=== PATIENT | male | born 1945 | race Caucasian/White ===

== ENCOUNTER 2016-12-10 22:08 | Inpatient (IN) | payer MEDICARE, OTHER ==
--- NOTE | ~2016-12-10 | DS ---
Discharge Summary [facility] [address] [facility] [place]. [address] NAME: RIMMA FLORIAN : 45 STATUS : DIS IN PAT#: [id number] AGE: 71 ADM/REG DATE : 12/10/16 MR#: [id number] REPORT SERV DATE: 01/09/17 DICTATED BY: JAKE HOLMAN DATE: 01/09/17 REPORT STATUS : Draft TRANSCRIBED BY: MODL DATE: 01/09/17 ADMISSION DATE: 12/10/2016 DISCHARGE DATE: 12/13/2016 CONDITION AT DISCHARGE: Alive and improved. The patient was transferred to [facility] for assessment by the Nephrology Group Therapy. The patient had to be transferred since he had previously dismissed the Nephrology Group that consulted in our hospital and did not want Nephrology's care here and was interested in going there for consideration of renal replacement therapy. Since that would be serviced and that could not be offered here, the transfer was just viable. He was accepted by the service at [facility] and transferred on 01/12/2017. There is a progress note on the chart from 12/13/2016 that outlines the subjective and objective findings on the day of transfer, including the physical exam on the day of transfer, and that outlines his diagnoses. SUMMARY OF CLINICAL COURSE: The patient is an unfortunate 71-year-old man with a multitude of medical problems to include, most significant for this, coronary artery disease, coronary artery bypass graft surgery in the past, COPD, diabetes which is poorly controlled, chronic kidney disease which is poorly controlled, hypercholesterolemia, hypertension, and questionable medical compliance. The patient had been considered for hemodialysis before and had not been sure he wanted to proceed with that. He is also a heavy smoker, greater than 50 pack year history up until recently and on the lead after this admission. He was admitted with acute respiratory failure, was intubated, and did reasonably well. It was felt that the worst of his respiratory failure was driven by pulmonary edema, though certainly had significant COPD as well. He was successfully stabilized, weaned and extubated. After extubation, the patient wanted to revisit some of the decisions that were made while he is incapacitated including his DNR status. He agreed to a no CPR status given the advanced stage of his cardiac pulmonary and kidney diseases, but wanted to be considered for hemodialysis. At his request, transfer was requested to the facility where he receives most of his care and where he has had a contact with a different Nephrology Group, and he was transferred to [facility] on 12/13/2016. DICTATED BY: Jake Holman M.D. CB/MORA Jake Holman M.D. / [id number] Discharge Summary [address] [address] NAME: RIMMA FLORIAN : 45 STATUS : DIS IN PAT#: [id number] AGE: 71 ADM/REG DATE : 12/10/16 MR#: [id number] REPORT SERV DATE: 01/09/17 DICTATED BY: JAKE HOLMAN DATE: 01/09/17 REPORT STATUS : Draft TRANSCRIBED BY: MORA DATE: 01/09/17 CC: Maryann Vargas MD
--- NOTE | ~2016-12-10 | CN ---
Consultation Report [address] [place]. [address] NAME: RIMMA FLORIAN : 45 STATUS : ADM IN PAT#: [id number] AGE: 71 ADM/REG DATE : 12/10/16 MR#: [id number] REPORT SERV DATE: 12/11/16 DICTATED BY: ROSANNE MCNAIR DATE: 12/11/16 REPORT STATUS : Draft TRANSCRIBED BY: MODL DATE: 12/11/16 CARDIOLOGY CONSULTATION DATE OF CONSULTATION: PRIMARY MILLING PLANER OPERATOR: Dr. Sargent. CHIEF COMPLAINT: Unknown. REASON FOR CONSULTATION: Abnormal troponin. SOURCE: The patient and his chart. HISTORY OF PRESENT ILLNESS: Mr. Florian is a 71-year-old white man who was admitted last night with respiratory failure because of abnormal troponin. We were asked to see him in consultation. The pulmonary critical care team has apparently talked to the family today, and the patient is now on DNR status. The patient reportedly did not want dialysis. He had been followed by Dr. Aba Sargent for history of coronary artery disease and coronary artery bypass grafting. He has known chronic kidney disease, and his nephrology notes reveal that he did not want to pursue hemodialysis. REVIEW OF SYSTEMS: Unobtainable. ALLERGIES: PER HIS HOME LIST INCLUDED SULFA AND CODEINE. MEDICATIONS: At home included, amlodipine, Lipitor, carvedilol, vitamin D3, glipizide, and nitroglycerin p.r.n. PAST MEDICAL HISTORY: Significant for coronary artery disease, status post coronary bypass grafting; chronic kidney disease, followed by Nephrology reportedly did not want hemodialysis; diabetes mellitus; hypertension; hyperlipidemia; tobacco use; mild carotid disease; left upper nodule. SOCIAL HISTORY: Unobtainable. Apparently, he is a heavy smoker. Denies alcohol intake. Occasional caffeine. FAMILY HISTORY: Unobtainable. PHYSICAL EXAMINATION: GENERAL: He is a well-developed, well-nourished, elderly white man, lying in bed, intubated and comatose. VITAL SIGNS: Blood pressure 154/90, pulse 78, temperature 98.5. HEENT: Sclerae anicteric. Lips without cyanosis. Consultation Report [address] [place]. [address] NAME: RIMMA FLORIAN : 45 STATUS : ADM IN PAT#: [id number] AGE: 71 ADM/REG DATE : 12/10/16 MR#: [id number] REPORT SERV DATE: 12/11/16 DICTATED BY: ROSANNE MCNAIR DATE: 12/11/16 REPORT STATUS : Draft TRANSCRIBED BY: MORA DATE: 12/11/16 NECK: Carotids 2+ and symmetrical. No bruits. No JVD. No thyromegaly. LUNGS: Clear anteriorly. No use of accessory muscles. HEART: Regular rate and rhythm without murmur, gallop, or rub. CHEST: Healed sternotomy. ABDOMEN: Positive bowel sounds. Soft, nontender. EXTREMITIES: Pulses 2+ and symmetrical. No cyanosis, clubbing, or edema. BACK: No CVA tenderness. MUSCULOSKELETAL: Diminished tone. NEURO: Comatose. LABORATORY EXAMINATION: Sodium 144, potassium 4.6, chloride 111, CO2 21.5, BUN 45, creatinine 4.2, GFR 15, glucose 312. White count 8.5, hemoglobin 9.0, hematocrit 26.4, platelets 143,000. INR 1.2. CPK 305 MB 33, troponin of 7 up from 0.05. BNP level of 1331. TSH of 1.51. The EKG reveals sinus rhythm, left atrial enlargement, left bundle-branch block. The echocardiogram is a technically difficult study. LVEF of 16%. Diastolic dysfunction, elevated filling pressures. Dilated left atrium. Normal RV chamber size and systolic function. Mild MR, large left-sided pleural effusion. IMPRESSION: 1. Acute respiratory failure, now intubated and ventilated. 2. Abnormal CPK-MB and troponin consistent with small fjj-NA-mjovtmj elevation myocardial infarction. 3. Acute on chronic systolic congestive heart failure. 4. Last LVEF of 16% by echo. 5. Coronary artery disease, status post coronary bypass grafting. 6. History of hypertension. 7. Acute renal failure on chronic kidney disease. The patient reportedly declined dialysis. RECOMMENDATIONS: 1. Note DNR status, therefore will not escalate care. 2. Diuresis with IV loop diuretics. 3. Consider dobutamine. 4. Poor prognosis. MENDOZA/MORA Rosanne Mcnair M.D. / [id number] CC: Consultation Report [place] [address] [address] NAME: RIMMA FLORIAN : 45 STATUS : ADM IN [facility]#: [id number] AGE: 71 ADM/REG DATE : 12/10/16 MR#: [id number] REPORT SERV DATE: 12/11/16 DICTATED BY: ROSANNE MCNAIR DATE: 12/11/16 REPORT STATUS : Draft TRANSCRIBED BY: MORA DATE: 12/11/16 Maryann Vargas MD
--- NOTE | ~2016-12-10 | HP ---
History And Physical [place] [id number] [place]. [address] NAME: RIMMA FLORIAN : 45 STATUS : ADM IN [facility]#: [id number] AGE: 71 ADM/REG DATE : 12/10/16 MR#: [id number] REPORT SERV DATE: 12/11/16 DICTATED BY: BALDO RAPHAEL DATE: 12/11/16 REPORT STATUS : Draft TRANSCRIBED BY: MODL DATE: 12/11/16 DATE OF ADMISSION: 12/10/2016 PULMONARY CRITICAL CARE ADMISSION NOTE REASON FOR ADMISSION: Acute hypoxemic respiratory failure. HISTORY OF PRESENT ILLNESS: Mr. Florian is a 71-year-old gentleman, who presented to our emergency department tonight via EMS complaining of shortness of breath. He was seen by Dr. Castillo in the emergency department for shortness of breath and he actually abruptly became unresponsive and was moved to the trauma room, where he was endotracheally intubated by Dr. Castillo and placed on mechanical ventilation. He was started on broad-spectrum antibiotics. Cultures were sent and he was actually found to be in acute renal failure. Of note, he does have a history of chronic kidney disease. There was a question of lateral ischemia on his EKG and he did have profound metabolic acidosis, which was treated with bicarb. Chest x-ray showed bilateral infiltrates and he is now being admitted to the Critical Care Service for further management. PAST MEDICAL HISTORY: Is all taken from his son from whom he is not close, but who makes his medical decisions, as he is his only living relative. He has a history of coronary artery disease, status post previous coronary artery bypass grafting by Dr. Martin. He had a five-vessel CAB in 2010 (BERNAL to LAD, saphenous vein graft to the diagonal, saphenous vein graft sequential side by side to the intermediate ramus and end side to side to the obtuse marginal vessel, saphenous vein graft to the posterior descending coronary artery). This was done on 09/17/2010. Other medical history includes hypertension, dyslipidemia, diabetes mellitus which is poorly controlled, COPD, and chronic kidney disease. He has been previously considered for dialysis according to his son, but has never actually undergone dialysis. SURGICAL HISTORY: In addition to the coronary bypass grafting described above includes tonsillectomy, appendectomy, hemorrhoidectomy, and left heart cath done 01/12/[address] Barboza. SOCIAL HISTORY: The patient lives independently. He is a heavy smoker with greater than 50- pack-year history. He previously drank, but is not drinking recently. No illicit drug use according to his son. He is retired. FAMILY HISTORY: Noncontributory. ALLERGIES: SULFA AND CODEINE. HOME MEDICATIONS: Include Norvasc 5 daily, atorvastatin 40 at bedtime, Coreg 25 b.i.d., vitamin D daily 5000 units, Glucotrol 5 twice a day, nitroglycerin 0.4 sublingual up to three times as needed for chest pain. History And Physical [address] [address] NAME: RIMMA FLORIAN : 45 STATUS : ADM IN [facility]#: [id number] AGE: 71 ADM/REG DATE : 12/10/16 MR#: [id number] REPORT SERV DATE: 12/11/16 DICTATED BY: BALDO RAPHAEL DATE: 12/11/16 REPORT STATUS : Draft TRANSCRIBED BY: MORA DATE: 12/11/16 ADVANCED DIRECTIVE/LIVING WILL: None. His son is his medical decision maker while he is incapacitated. REVIEW OF SYSTEMS: A comprehensive 13-point review of systems was completed and was negative except for those points described above in the history of present illness section of the dictation. PHYSICAL EXAMINATION: VITAL SIGNS: Stable. He is afebrile with a blood pressure of 140 and a heart rate of 84, oxygen saturation is 100%, respiratory rate is 18 on mechanical ventilation. Pain scale is unassessed due to his sedation. GENERAL: The patient is a male, who is intubated and sedated, in no acute distress. HEENT: Head is atraumatic and normocephalic. Pupils are sluggishly reactive to light. Unable to assess extraocular movements. He has no scleral icterus or conjunctival pallor. Ears, nose, and mouth are unremarkable. He has poor oral dentition and an endotracheal tube (7.5) projecting from the mouth. He has an OG tube as well. NECK: Supple with no evidence of JVD. On point of care ultrasound, his carotid is patent and pulsatile. His jugular vein is also patent and is easily compressible. HEART: S1, S2. Brisk cap refill in distal extremities. On no vasopressors. LUNGS: With coarse breath sounds with bibasilar crackles. No audible wheeze. ABDOMEN: He does have some wincing to palpation of his abdomen with positive bowel sounds in all four quadrants. No appreciable peritoneal signs. : A Jara catheter is indwelling and draining a very small amount of urine. EXTREMITIES: With 1+ pitting edema bilateral pretibially. NEUROLOGIC: He moves all four extremities as a response to pain. He does not follow commands due to propofol sedation. Further neurologic exam is limited by propofol. PSYCHIATRIC: Unable to assess. DIAGNOSTIC STUDIES: Personal review of diagnostic workup completed in the emergency department. His initial blood gas showed pH 7.06, PaCO2 of 58, PO2 of 259, base excess -14, bicarb of 16.3, and a sat of 100%. A followup blood gas this evening shows pH of 7.26, CO2 of 43, O2 of 78, bicarb of 19, O2 saturation is 93.4 on 45% FiO2. Metabolic profile, white blood count 13.5 with a hemoglobin 11.7, hematocrit of 35.3, platelet count is 279. INR is 1.1. D-dimer is 2.76. Lactate is 2.8. Procalcitonin is less than 0.05. Troponin is 0.05. Magnesium is 2.1. His metabolic profile is significant for acute renal failure with a BUN of 42 and a creatinine of 4.26. His last documented BUN and creatinine in our facility is 16 and 0.93 on 01/13/2013, is hyperglycemic at 285. A BNP level is 1550. EKG FINDINGS: Question of lateral lead ST elevation, sinus tach at a rate of 138, some of the ST changes are chronic in comparison with many previous EKGs available on [employer]. A followup EKG has been ordered for the morning. A chest x-ray shows bilateral (right greater than left pulmonary infiltrates with no significant pleural fluid collections). His endotracheal tube is high and the OG tube is in place (endotracheal tube was adjusted). IMPRESSION: 1. Acute hypoxemic respiratory failure. Differential includes pulmonary edema secondary History And Physical [address] [address] NAME: RIMMA FLORIAN : 45 STATUS : ADM IN [facility]#: [id number] AGE: 71 ADM/REG DATE : 12/10/16 MR#: [id number] REPORT SERV DATE: 12/11/16 DICTATED BY: BALDO RAPHAEL DATE: 12/11/16 REPORT STATUS : Draft TRANSCRIBED BY: MORA DATE: 12/11/16 to acute renal failure, which is supported by his elevated BNP level and pitting edema in his legs, chronic obstructive pulmonary disease exacerbation. He will be treated with bronchodilator protocol and has already received Solu-Medrol in the emergency department. Of note, he is not actively wheezing. Thus, we will not continue corticosteroids. Community-acquired pneumonia. We will treat with broad-spectrum antibiotics including Rocephin and Zithromax (he is a community dweller) and we will begin ventilator weaning tomorrow morning. We will diuretic challenge him as well. 2. Acute renal failure likely superimposed on to chronic kidney disease. Diuretic challenge and Nephrology consultation. We will obtain urine and serum osms and urine electrolytes and check a renal ultrasound. 3. Mild lactic acidosis/metabolic acidosis likely multifactorial. He has already received bicarb in the emergency department and is responding based on his last panel of labs. 4. Diabetes mellitus with hyperglycemia in the setting of critical illness. As he is n.p.o., we will use correction insulin for now and check an A1c. 5. History of hypertension. We will hold his oral and use p.r.n. labetalol for now. 6. Coronary artery disease, status post coronary bypass grafting with followup left heart cath done a couple of years later. We will trend troponins, EKGs, and check a 2D echo tomorrow morning. We will be judicious with regard to intravenous fluid administration and may consider Cardiology consultation if clinically warranted. 7. For deep vein thrombosis prophylaxis, we will use heparin with dosing for a GFR of [address] him on PPI for stress ulcer prophylaxis while on mechanical ventilation. We will initiate tube feeds tomorrow if he is unable to be extubated and closely follow his in's and out's. His son was updated by telephone and is not planning to come to the hospital side, as he lives in [place]. He is a full code. 8. Records in both Comprehensive [facility] and [facility] were reviewed. 9. I did discuss the case with Dr. Castillo from the emergency department and nursing staff. Approximately 73 minutes of critical care time at the bedside uninterrupted assessing and stabilizing Mr. Anna booker. We will continue to make adjustments to his regimen as clinically warranted. VJ/MODL Baldo Raphael MD / [id number] CC: Baldo Raphael MD
[2016-12-10 20:24] LABS: BASOPHILS 0.6 %; BASOPHILS ABSOLUTE 0.08 10/3/uL (0.0-0.16); EOSINOPHILS 2.1 %; EOSINOPHILS ABSOLUTE 0.29 10/3/uL (0.0-0.53); HEMATOCRIT 35.3 % (40.0-51.0); HEMOGLOBIN 11.7 g/dL (13.6-17.8); IMMATURE GRANULOCYTES 0.6 %; IMMATURE GRANULOCYTES ABSOLUTE 0.08 10/3/uL (0.0-0.11); LYMPHOCYTES 23.9 %; LYMPHOCYTES ABSOLUTE 3.22 10/3/uL (0.67-4.30); MEAN CORPUS HGB CONC 33.1 g/dL (32.0-36.0); MEAN CORPUSCULAR HEMOGLOB 30.9 pg (26.0-34.0); MEAN PLATELET VOLUME 10.8 fL (9.2-13.0); MONOCYTES 6.2 %; MONOCYTES ABSOLUTE 0.83 10/3/uL (0.21-1.20); NEUTROPHILS 66.6 %; NEUTROPHILS ABSOLUTE 8.99 10/3/uL (2.02-8.40); RBC DISTRIBUTION WIDTH 13.7 % (12.0-16.0); RED CELL COUNT 3.79 10/6/uL (4.7-6.1)
[2016-12-10 20:26] LABS: ER CBC TAT 0 Hrs 08 Mins; MANUAL DIFF NO %; MEAN CORPUSCULAR VOLUME 93.1 fL (80-100); PLATELET COUNT 279 10/3/uL (150-400); WHITE BLOOD CELLS 13.5 10/3/uL (4.5-10.5)
[2016-12-10 20:33] LABS: INTERNATIONAL NORMAL RATI 1.1 UNITS (-); PARTIAL THROMBO TIME 29.5 SEC (22.5-37.2); PROTIME (NOT ORD) 14.4 SEC (12.0-14.5)
[2016-12-10 20:36] LABS: D-DIMER QUANTITATIVE 2.76 ug/mLFEU (< 0.50)
[2016-12-10 20:41] LABS: CALCIUM, SERUM 8.1 MG/DL (8.5-10.4); CHLORIDE, SERUM 108 MMOL/L (96-112); CO2 (CARBON DIOXIDE) 20 MMOL/L (24-34); POTASSIUM, SERUM 4.5 MMOL/L (3.5-5.3); SODIUM, SERUM 141 MMOL/L (135-148)
[2016-12-10 20:42] LABS: BUN (BLOOD UREA NITROGEN) 42 MG/DL (6-23); CREATININE 4.26 MG/DL (0.70-1.30); GFR AFRICAN AMERICAN 15 ML/MIN (>=60); GFR NON AFRICAN AMERICAN 13 ML/MIN (>=60); GLUCOSE, SERUM 285 MG/DL (60-99)
[2016-12-10 20:46] LABS: CHEST PAIN PROFILE TAT 0 Hrs 28 Mins; TROPONIN I 0.05 NG/ML (<0.05)
[~2016-12-10 22:08] MED LIST: *UNABLE3; ASA5GR PO; ASAB PO; COREG25 PO; FISH-EPA1000 MG PO; IMDUR30 PO; LIPITOR10 PO; LOP50 PO; MEVACOR40 MG PO; MICRONASE5 MG PO; NITROSTAT0.4 MG SL; NORV5 PO; PLAVIX PO; PRIN10 PO; PRIN20 PO; PROBOTIC; VITAMIN D31000 UNIT PO; VITAMIN D400 UNI1 PO
[2016-12-10 23:07] LABS: ALLENS TEST Pos; BE (BASE EXCESS) -7.6 MEQ/L (0 +/- 2.5); CARBOXYHEMOGLOBIN 0.8 % (0-3); HEMOBLOGIN CONTENT 9.8 G/DL (14-18); INSTRUMENT SERIAL # 8087; METHEMOGLOBIN 0.2 % (0-3); MODE CMV; O2 CONTENT 12.8 VOL% (18-24); OPERATOR ID 33449; PCO2 (CO2 TENSION) 43 MMHG (35-45); PO2 (O2 TENSION) 78 MMHG (79-93); SAMPLE Arterial; TIDAL VOLUME 420 ML; pH 7.26 (7.37-7.43)
[2016-12-11 00:34] LABS: PROCALCITONIN <0.05 ng/mL (<0.5)
[2016-12-11 02:56] LABS: ALLENS TEST Pos; BE (BASE EXCESS) -3.8 MEQ/L (0 +/- 2.5); CARBOXYHEMOGLOBIN 0.2 % (0-3); HCO3 (ACTUAL BICARBONATE) 21.5 MEQ/L (23-27); HEMOBLOGIN CONTENT 9.5 G/DL (14-18); INSTRUMENT SERIAL # 35151; METHEMOGLOBIN 0.9 % (0-3); MODE CMV; OPERATOR ID 13861; PCO2 (CO2 TENSION) 40 MMHG (35-45); PO2 (O2 TENSION) 101 MMHG (79-93); SAMPLE Arterial; TIDAL VOLUME 420 ML; pH 7.35 (7.37-7.43)
[2016-12-11 05:23] LABS: INTERNATIONAL NORMAL RATI 1.2 UNITS (-); PARTIAL THROMBO TIME 33.7 SEC (22.5-37.2); PROTIME (NOT ORD) 15.3 SEC (12.0-14.5)
[2016-12-11 05:45] LABS: BUN (BLOOD UREA NITROGEN) 45 MG/DL (6-23); CALCIUM, SERUM 7.3 MG/DL (8.5-10.4); CHLORIDE, SERUM 111 MMOL/L (96-112); CK-MB 32.9 NG/ML; CO2 (CARBON DIOXIDE) 21 MMOL/L (24-34); CPK 291 U/L (0-200); CREATININE 4.21 MG/DL (0.70-1.30); FREE T4 1.18 NG/DL (0.76-1.46); GFR AFRICAN AMERICAN 15 ML/MIN (>=60); GFR NON AFRICAN AMERICAN 13 ML/MIN (>=60); GLUCOSE, SERUM 312 MG/DL (60-99); PHOSPHORUS, SERUM 3.9 MG/DL (2.5-4.5); POTASSIUM, SERUM 4.6 MMOL/L (3.5-5.3); SGOT(AST) 29 U/L (5-40); SGPT(ALT) 13 U/L (5-65); SODIUM, SERUM 144 MMOL/L (135-148); TOTAL BILIRUBIN 0.3 MG/DL (0-1.2); TOTAL PROTEIN 5.8 G/DL (6.0-8.5)
[2016-12-11 05:55] LABS: A/G RATIO 0.8 (0.7-1.9); ALBUMIN 2.5 G/DL (3.5-5.0); ALKALINE PHOSPHATASE 87 U/L (45-117); CKMB INDEX (NOT ORD) 11.3; GLOBULIN 3.3 G/DL (2.5-4.1)
[2016-12-11 05:56] LABS: TROPONIN I 4.08 NG/ML (<0.05)
[2016-12-11 06:05] LABS: BASOPHILS 0.1 %; BASOPHILS ABSOLUTE 0.01 10/3/uL (0.0-0.16); EOSINOPHILS 0 %; IMMATURE GRANULOCYTES 0.2 %; IMMATURE GRANULOCYTES ABSOLUTE 0.02 10/3/uL (0.0-0.11); LYMPHOCYTES ABSOLUTE 0.26 10/3/uL (0.67-4.30); MEAN CORPUS HGB CONC 34.1 g/dL (32.0-36.0); MEAN PLATELET VOLUME 10.4 fL (9.2-13.0); MONOCYTES 1.9 %; MONOCYTES ABSOLUTE 0.16 10/3/uL (0.21-1.20); NEUTROPHILS 94.8 %; NEUTROPHILS ABSOLUTE 8.08 10/3/uL (2.02-8.40); RBC DISTRIBUTION WIDTH 13.5 % (12.0-16.0); WHITE BLOOD CELLS 8.5 10/3/uL (4.5-10.5)
[2016-12-11 06:06] LABS: HEMATOCRIT 26.4 % (40.0-51.0); MANUAL DIFF NO %; PLATELET COUNT 143 10/3/uL (150-400)
[2016-12-11 06:18] LABS: ASCORBIC ACID (UR NOT ORDER) NEG (NEG); BILIRUBIN, URINE NEGATIVE (NEG); KETONE, URINE NEGATIVE (NEG); LEUKOCYTE ESTERASE(NOT OR NEG (NEG); WBC (NOT ORDERED) (RFLEX) 6 (0-5)
[2016-12-11 06:40] LABS: PROCALCITONIN 0.39 ng/mL (<0.5)
[2016-12-11 06:54] LABS: SED RATE 54 MM/HR (0-15)
[2016-12-11 07:35] LABS: CREATININE, URINE 67.5 MG/DL
[2016-12-11 10:18] LABS: CK-MB 33.2 NG/ML; CKMB INDEX (NOT ORD) 10.9
[2016-12-11 10:19] LABS: TROPONIN I 7.02 NG/ML (<0.05)
[2016-12-11 21:37] LABS: GLYCOHEMOGLOBIN (HbA1c) 7.8 % (4.7-6.1)
[2016-12-11 22:53] LABS: CK-MB 25.7 NG/ML; CKMB INDEX (NOT ORD) 7.8; TROPONIN I 7.77 NG/ML (<0.05)
[2016-12-12 04:32] LABS: BE (BASE EXCESS) -7.9 MEQ/L (0 +/- 2.5); CARBOXYHEMOGLOBIN 0.3 % (0-3); HCO3 (ACTUAL BICARBONATE) 17.7 MEQ/L (23-27); HEMOBLOGIN CONTENT 9.4 G/DL (14-18); INSTRUMENT SERIAL # 35151; METHEMOGLOBIN 0.8 % (0-3); PCO2 (CO2 TENSION) 36 MMHG (35-45); PO2 (O2 TENSION) 79 MMHG (79-93); pH 7.31 (7.37-7.43)
[2016-12-12 04:33] LABS: BASOPHILS 0 %; EOSINOPHILS 0 %; HEMATOCRIT 28.6 % (40.0-51.0); HEMOGLOBIN 9.6 g/dL (13.6-17.8); IMMATURE GRANULOCYTES 0.2 %; IMMATURE GRANULOCYTES ABSOLUTE 0.03 10/3/uL (0.0-0.11); LYMPHOCYTES 8.9 %; LYMPHOCYTES ABSOLUTE 1.07 10/3/uL (0.67-4.30); MEAN CORPUS HGB CONC 33.6 g/dL (32.0-36.0); MEAN CORPUSCULAR HEMOGLOB 30.8 pg (26.0-34.0); MEAN CORPUSCULAR VOLUME 91.7 fL (80-100); MEAN PLATELET VOLUME 11.2 fL (9.2-13.0); MONOCYTES 8.6 %; MONOCYTES ABSOLUTE 1.04 10/3/uL (0.21-1.20); NEUTROPHILS 82.3 %; NEUTROPHILS ABSOLUTE 9.93 10/3/uL (2.02-8.40); RBC DISTRIBUTION WIDTH 13.6 % (12.0-16.0); RED CELL COUNT 3.12 10/6/uL (4.7-6.1)
[2016-12-12 04:33] LABS: ALLENS TEST Pos; MODE CMV; O2 CONTENT 12.4 VOL% (18-24); OPERATOR ID 23712; SAMPLE Arterial; TIDAL VOLUME 420 ML
[2016-12-12 04:34] LABS: MANUAL DIFF NO %; PLATELET COUNT 194 10/3/uL (150-400); WHITE BLOOD CELLS 12.1 10/3/uL (4.5-10.5)
[2016-12-12 06:14] LABS: A/G RATIO 0.6 (0.7-1.9); ALBUMIN 2.3 G/DL (3.5-5.0); ALKALINE PHOSPHATASE 85 U/L (45-117); CALCIUM, SERUM 7.6 MG/DL (8.5-10.4); CHLORIDE, SERUM 109 MMOL/L (96-112); CO2 (CARBON DIOXIDE) 19 MMOL/L (24-34); GLOBULIN 3.8 G/DL (2.5-4.1); POTASSIUM, SERUM 5.2 MMOL/L (3.5-5.3); SGOT(AST) 486 U/L (5-40); SGPT(ALT) 344 U/L (5-65); SODIUM, SERUM 141 MMOL/L (135-148); TOTAL BILIRUBIN 0.4 MG/DL (0-1.2); TOTAL PROTEIN 6.1 G/DL (6.0-8.5)
[2016-12-12 06:16] LABS: BUN (BLOOD UREA NITROGEN) 64 MG/DL (6-23); CKMB INDEX (NOT ORD) 7.5; CPK 160 U/L (0-200); CREATININE 5.25 MG/DL (0.70-1.30); GFR AFRICAN AMERICAN 12 ML/MIN (>=60); GFR NON AFRICAN AMERICAN 10 ML/MIN (>=60); GLUCOSE, SERUM 135 MG/DL (60-99)
[2016-12-12 06:17] LABS: TROPONIN I 6.37 NG/ML (<0.05)
[2016-12-13 04:21] LABS: BASOPHILS 0 %; EOSINOPHILS 0 %; HEMATOCRIT 29.2 % (40.0-51.0); HEMOGLOBIN 9.8 g/dL (13.6-17.8); IMMATURE GRANULOCYTES 0.4 %; IMMATURE GRANULOCYTES ABSOLUTE 0.04 10/3/uL (0.0-0.11); LYMPHOCYTES 3.2 %; LYMPHOCYTES ABSOLUTE 0.36 10/3/uL (0.67-4.30); MANUAL DIFF NO %; MEAN CORPUS HGB CONC 33.6 g/dL (32.0-36.0); MEAN CORPUSCULAR HEMOGLOB 30.8 pg (26.0-34.0); MEAN CORPUSCULAR VOLUME 91.8 fL (80-100); MEAN PLATELET VOLUME 11.2 fL (9.2-13.0); MONOCYTES 2.2 %; MONOCYTES ABSOLUTE 0.25 10/3/uL (0.21-1.20); NEUTROPHILS 94.2 %; NEUTROPHILS ABSOLUTE 10.71 10/3/uL (2.02-8.40); PLATELET COUNT 189 10/3/uL (150-400); RBC DISTRIBUTION WIDTH 13.7 % (12.0-16.0); RED CELL COUNT 3.18 10/6/uL (4.7-6.1); WHITE BLOOD CELLS 11.4 10/3/uL (4.5-10.5)
[2016-12-13 04:34] LABS: CALCIUM, SERUM 7.5 MG/DL (8.5-10.4); CHLORIDE, SERUM 108 MMOL/L (96-112); CO2 (CARBON DIOXIDE) 20 MMOL/L (24-34); POTASSIUM, SERUM 4.9 MMOL/L (3.5-5.3); SODIUM, SERUM 142 MMOL/L (135-148)
[2016-12-13 04:35] LABS: BUN (BLOOD UREA NITROGEN) 89 MG/DL (6-23); CREATININE 6.07 MG/DL (0.70-1.30); GFR AFRICAN AMERICAN 10 ML/MIN (>=60); GFR NON AFRICAN AMERICAN 9 ML/MIN (>=60); GLUCOSE, SERUM 292 MG/DL (60-99)
[2017-02-18] MEDS ORDERED: TRIPHROCAPS PO (13:28)
[2017-02-18] MEDS ORDERED: VITE PO (13:29)
[2017-02-18] MEDS ORDERED: ASAB PO (13:30)
[2017-02-18] MEDS ORDERED: GLUCOTROL5 PO (13:32)
[2017-02-18] MEDS ORDERED: APRES25 PO (13:33)
[2017-02-18] MEDS ORDERED: BRILINTA90 MG PO (13:34)
[2017-02-18] MEDS ORDERED: PHOSLO PO (13:39)
== END 2016-12-13 12:30 | disposition short-term general hospital (02) | DRG 208 ==
LOC: ER 22:08 → CCU 22:45
PROVIDERS: Emergency Medicine; Internal Medicine Critical Care Medicine; Internal Medicine Pulmonary Disease
PROC: 5A1945Z Respiratory Ventilation, 24-96 Consecutive Hours (ICD-10-PCS; principal; 2016-12-10)
PROC: 0BH17EZ Insertion of Endotracheal Airway into Trachea, Via Natural or Artificial Opening (ICD-10-PCS; 2016-12-10)
DX: J96.21 Acute and chronic respiratory failure with hypoxia (principal); I21.4 Non-ST elevation (NSTEMI) myocardial infarction; N17.9 Acute kidney failure, unspecified; E87.2 Acidosis; J43.9 Emphysema, unspecified; I13.0 Hypertensive heart and chronic kidney disease with heart failure and stage 1 through stage 4 chronic kidney disease, or unspecified chronic kidney disease; I50.22 Chronic systolic (congestive) heart failure; Z66 Do not resuscitate; I25.10 Atherosclerotic heart disease of native coronary artery without angina pectoris; E78.5 Hyperlipidemia, unspecified; E11.22 Type 2 diabetes mellitus with diabetic chronic kidney disease; F17.210 Nicotine dependence, cigarettes, uncomplicated; E11.65 Type 2 diabetes mellitus with hyperglycemia; Z95.1 Presence of aortocoronary bypass graft; Z88.2 Allergy status to sulfonamides; Z88.5 Allergy status to narcotic agent; N18.9 Chronic kidney disease, unspecified
CPT/HCPCS: 31720; 36600; 71010; 74000; 80048; 80053; 80202; 81001; 82140; 82330; 82533; 82550; 82553; 82570; 82803; 82805; 82947; 82962; 83036; 83605; 83735; 83880; 83935; 84100; 84132; 84133; 84145; 84295; 84439; 84443; 84484; 85014; 85025; 85379; 85610; 85652; 85730; 87040; 87070; 87205; 87449; 87641; 93005; 93306; 93975; 94002; 94003; 94640; 94770; 96365; 96375; 99291; A9270-GY; C1894; C9113; J0360; J0456; J2543; J2920; J2930; J3010; J3370

== ENCOUNTER 2017-02-20 09:20 | Day surgery (SDC) | payer MEDICARE, OTHER ==
[~2017-02-20] VITALS: Ht 175.3 cm; Wt 65.3 kg
--- NOTE | ~2017-02-20 | OP ---
Record Of Operation [facility] [address] [place]. [address] NAME: RIMMA FLORIAN : 45 STATUS : [facility]#: [id number] AGE: 71 ADM/REG DATE : 02/20/17 MR#: [id number] REPORT SERV DATE: 02/22/17 DICTATED BY: JONO DUFFY DATE: 02/21/17 REPORT STATUS : Draft TRANSCRIBED BY: MODL DATE: 02/21/17 DATE OF PROCEDURE: 02/20/2017 PREOPERATIVE DIAGNOSIS: End-stage renal disease. POSTOPERATIVE DIAGNOSIS: End-stage renal disease. PROCEDURE: Left forearm loop arteriovenous graft. SURGEON: Jono Duffy M.D. SENIOR PROJECT ENGINEER: Finn Lozano. ANESTHESIA: Block. INDICATIONS: The patient is a 71-year-old gentleman with end-stage renal disease who has been dialyzed via a right IJ PermCath. He needs longer-term access, so he was consented for intervention. DESCRIPTION OF PROCEDURE: After informed consent was obtained, the patient was taken to the operating room and placed in the supine position on the operating table. A block had previously been administered. The patient's left upper extremity was prepped and draped in usual sterile fashion. An ultrasound examination of the left upper extremity demonstrated that the forearm veins were all small. The cephalic vein was greater than 3 mm in diameter close to the antecubital fossa, but tapered off more proximally. The basilic vein measured 4.2 mm in diameter at the antecubital fossa and actually became even larger more centrally. The brachial artery measured about 4 mm in diameter. Thus, I decided to perform a forearm loop graft to give him an access now and to mature his basilic and potentially cephalic vein. A transverse skin incision was made along the forearm. Cautery was used to deepen the incision. I dissected out the basilic vein as well as part of the cephalic vein. I dissected out the brachial artery. I tunneled a 4 mm to 7 mm tapered PTFE graft in the subcutaneous position using the assistance of a counterincision. I spatulated both ends of the graft. I systemically heparinized. I created a longitudinal arteriotomy on the brachial artery after controlling the brachial artery. I sewed the 4 mm end of the graft onto the side of the brachial artery. I flushed off air and debris before tying down the sutures. I achieved hemostasis. I controlled the basilic vein. I created a longitudinal venotomy. I sewed the end of the graft onto the side of the basilic vein. While doing this, I noted that there was a tear along the back wall of the basilic vein. I repaired this. I closed the anastomosis after flushing out air and debris. I released flow. There was a good thrill within the graft and the basilic vein dilated up well. I washed out the wounds, achieved hemostasis, and closed the wounds in layers. The hand was not ischemic in appearance. The patient tolerated the procedure well without any intraprocedural complications noted. Record Of Operation [address] [place]. [address] NAME: RIMMA FLORIAN : 45 STATUS : [facility] PAT#: [id number] AGE: 71 ADM/REG DATE : 02/20/17 MR#: [id number] REPORT SERV DATE: 02/22/17 DICTATED BY: JONO DUFFY DATE: 02/21/17 REPORT STATUS : Draft TRANSCRIBED BY: MORA DATE: 02/21/17 AMANDEEP/MORA Jono Duffy M.D. / [id number] CC: Jono Duffy M.D. NAPLESVITALY M.D.
[~2017-02-20 09:20] MED LIST changes: +APRES25 PO; +BRILINTA90 MG PO; +GLUCOTROL5 PO; +PHOSLO PO; +TRIPHROCAPS PO; +VITE PO
[2017-02-20 10:08] LABS: HEMATOCRIT 30.3 % (40.0-51.0)
[2017-02-20 10:20] LABS: BUN (BLOOD UREA NITROGEN) 37 MG/DL (6-23); CALCIUM, SERUM 8.1 MG/DL (8.5-10.4); CHLORIDE, SERUM 103 MMOL/L (96-112); CO2 (CARBON DIOXIDE) 30 MMOL/L (24-34); CREATININE 4.38 MG/DL (0.70-1.30); GFR AFRICAN AMERICAN 15 ML/MIN (>=60); GFR NON AFRICAN AMERICAN 13 ML/MIN (>=60); GLUCOSE, SERUM 146 MG/DL (60-99); SODIUM, SERUM 139 MMOL/L (135-148)
== END 2017-02-20 19:21 | disposition home or self-care (01) ==
LOC: SDC 09:20
PROVIDERS: Surgery
PROC: 03180ZD Bypass Left Brachial Artery to Upper Arm Vein, Open Approach (ICD-10-PCS; principal; 2017-02-20 11:15)
DX: E11.22 Type 2 diabetes mellitus with diabetic chronic kidney disease (principal); I12.0 Hypertensive chronic kidney disease with stage 5 chronic kidney disease or end stage renal disease; E11.9 Type 2 diabetes mellitus without complications; I71.4 Abdominal aortic aneurysm, without rupture; I44.7 Left bundle-branch block, unspecified; N18.6 End stage renal disease; Z79.899 Other long term (current) drug therapy; Z87.891 Personal history of nicotine dependence; Z90.49 Acquired absence of other specified parts of digestive tract; Z90.89 Acquired absence of other organs
CPT/HCPCS: 80048; 82962; 85014; 85018; 93005; C1768; J0690; J2250; J2795; J3010